=== PATIENT | male | born 1995 | race Caucasian/White ===

== ENCOUNTER → 2017-05-26 14:51 | Outpatient (CLI) | payer BC, SELFPAY ==
--- NOTE | 2017-05-26 14:57 | RAD_ITS ---
STUDY: X-RAY - LEFT ELBOW REASON FOR EXAM: Male, 21 years old. Left elbow pain and weakness TECHNIQUE: 3 view(s) of the elbow. COMPARISON: None. FINDINGS: Normal visualized humerus, radius and ulna. Normal radiocapitellar and ulnotrochlear articulations. The soft tissue structures are unremarkable. RAD/Elbow min 3 Views IMPRESSION: Normal x-ray examination of the elbow. Electronically Signed: Evan Wall DO at 15:28 EST Tel , Service support ,
--- NOTE | 2017-05-26 14:57 | RAD_ITS ---
STUDY: X-RAY - LEFT HUMERUS REASON FOR EXAM: Male, 21 years old. Left arm pain and weakness x2 weeks TECHNIQUE: 2 view(s) of the humerus. COMPARISON: None. FINDINGS: Normal visualized humerus. There is no demonstrated fracture or osseous destructive process. There is no demonstrated soft tissue abnormality. RAD/Humerus min 2 Views IMPRESSION: Normal x-ray examination of the humerus. Electronically Signed: Evan Wall DO at 15:29 EST Tel , Service support ,
--- NOTE | 2017-05-26 14:57 | RAD_ITS ---
STUDY: X-RAY - CERVICAL SPINE REASON FOR EXAM: Male, 21 years old. Left arm pain and weakness TECHNIQUE: 5 view(s) of the cervical spine were obtained. COMPARISON: None FINDINGS: Normal anterior atlantoaxial articulation. Normal odontoid process. Normal cervical lordosis. Normal vertebral bodies and endplates. Normal disc space heights. Normal visualized intervertebral neuroforamina. The soft tissue structures are unremarkable. RAD/Cerv Spine 4 or 5 Views IMPRESSION: Normal x-ray examination of the visualized cervical spine. Electronically Signed: Evan Wall DO at 15:28 EST Tel , Service support ,
== END ==
PROVIDERS: Family Provider Family Medicine; PCP Family Medicine; Visit Provider Family Medicine
DX: M79.602 Pain in left arm (principal); R29.898 Other symptoms and signs involving the musculoskeletal system
CPT/HCPCS: 72050; 73060; 73080

== ENCOUNTER → 2017-05-30 12:18 | Outpatient (CLI) | payer BC, SELFPAY ==
--- NOTE | 2017-05-30 13:00 | MRI_ITS ---
STUDY: MRI CERVICAL SPINE WITHOUT CONTRAST REASON FOR EXAM: Male, 21 years old. Left tricep, elbow and forearm pain. Decreased timers inspector and wrist extension. TECHNIQUE: Standardized fat and water weighted pulse sequences were obtained in the sagittal and axial planes. COMPARISON: None FINDINGS: Normal foramen magnum and brainstem-cervical cord junction. Normal craniovertebral junction. Normal anterior atlantoaxial articulation. Normal odontoid process. Normal cervical lordosis. Normal vertebral bodies and posterior osseous elements. C2-3: Normal endplates. Normal disc height, signal and morphology. Normal central canal and intervertebral neural foramina. C3-4: Normal endplates. Normal disc height, signal and morphology. Normal central canal and intervertebral neural foramina. C4-5: Normal endplates. Normal disc height, signal and morphology. Normal central canal and intervertebral neural foramina. C5-6: Normal endplates. Minimal disc space height narrowing with minimal loss of disc hydration. No ventral extradural defect. Normal central canal and bilateral intervertebral neural foramina. C6-7: Normal endplates. Normal disc height, signal and morphology. Normal central canal and intervertebral neural foramina. C7-T1: Normal endplates. Normal disc height, signal and morphology. Normal central canal and intervertebral neural foramina. Normal cervical cord. Normal visualized soft tissue structures. MRI/Spine Cervical (Routine) IMPRESSION: 1. No MRI evidence of cervical extruded disc fragment, spinal stenosis or cervical nerve root displacement. 2. Minimal C5-C6 disc space height narrowing with minimal loss of disc hydration. Electronically Signed: Polo Rain MD at 14:28 EST , Service support ,
== END ==
PROVIDERS: Family Provider Family Medicine; PCP Family Medicine; Visit Provider Family Medicine
DX: M79.602 Pain in left arm (principal); R29.898 Other symptoms and signs involving the musculoskeletal system
CPT/HCPCS: 72141

== ENCOUNTER → 2020-04-07 11:18 | Outpatient (CLI) | payer BC, SELFPAY ==
[2020-04-11 03:06] LABS: Chlamydia By Nucleic Acid AMP Negative (Negative)
[2020-04-11 11:18] LABS: Gonococcus By Nucleic Acid AMP Negative (Negative)
== END ==
PROVIDERS: PCP Family Medicine; Visit Provider Family Medicine
DX: A54.01 Gonococcal cystitis and urethritis, unspecified (principal); R35.0 Frequency of micturition
CPT/HCPCS: 87077; 87086; 87088; 87491; 87591

== ENCOUNTER → 2023-11-26 | Outpatient (CLI) | payer SELFPAY | END | disposition home or self-care (01) | PROVIDERS: PCP Nurse Practitioner Family; Referring Provider Nurse Practitioner Family; Visit Provider Nurse Practitioner Family | DX: R35.0 Frequency of micturition (principal); A54.01 Gonococcal cystitis and urethritis, unspecified | CPT/HCPCS: 87086 ==